=== PATIENT | male | born 1960 | race Caucasian/White ===

== ENCOUNTER 2018-02-23 16:17 | Emergency (ER) | payer BC, OTHER ==
[~2018-02-23] VITALS: Ht 167.6 cm; Wt 85.0 kg
[2018-02-23] MEDS ORDERED: THIAMINE 100 MG/ML, 2ML ONE (16:46)
[2018-02-23 16:58] LABS: BASOPHILS # (AUTO) 0.04 x10^3/uL (0-0.1); BASOPHILS % (AUTO) 0 % (0-1); EOSINOPHILS # (AUTO) 0.09 x10^3/uL (0-0.4); EOSINOPHILS % (AUTO) 1 % (1-7); LYMPHOCYTES # (AUTO) 2.33 x10^3/uL (1-3.4); LYMPHOCYTES % (AUTO) 20 % (22-44); MD NO; MEAN CORPUSCULAR HEMOGLOBIN 31.5 pg (27.5-34.5); MEAN CORPUSCULAR HGB CONC 34.7 g/dL (33.2-36.2); MEAN CORPUSCULAR VOLUME 90.8 fL (81-97); MEAN PLATELET VOLUME 6.5 fL (7.4-10.4); MONOCYTES # (AUTO) 0.89 x10^3/uL (0.2-0.8); MONOCYTES % (AUTO) 8 % (2-9); NEUTROPHILS # (AUTO) 8.39 x10^3/uL (1.8-6.8); NEUTROPHILS % (AUTO) 72 % (42-75); PLATELET COUNT 349 x10^3/uL (130-400); RED BLOOD COUNT 4.82 x10^6/uL (4.38-5.82); RED CELL DISTRIBUTION WIDTH 15.1 % (9.4-14.8)
[2018-02-23] MEDS ORDERED: THIAMINE 100 MG/ML, 2ML IM ONE (17:00)
[2018-02-23 17:11] LABS: ALBUMIN 4.6 g/dL (3.4-5.0); ANION GAP 14 mmol/L (5-15); CALCIUM 8.3 mg/dL (8.5-10.1); CHLORIDE 101 mmol/L (98-107); CREATININE 1.15 mg/dL (0.7-1.3)
[2018-02-23 19:31] VITALS: BP 120/70
== END 2018-02-23 19:33 | disposition home or self-care (01) ==
LOC: ED 18:11
DX: F10.229 Alcohol dependence with intoxication, unspecified (principal); Z71.41 Alcohol abuse counseling and surveillance of alcoholic; Y90.9 Presence of alcohol in blood, level not specified
CPT/HCPCS: 36415; 80048; 80307; 82040; 85025; 93005; 96372; 99285; J3411